=== PATIENT | female | born 1960 | race Caucasian/White ===

== ENCOUNTER → 2016-06-28 | Outpatient (CLI) | payer OTHER ==
[~2016-06-28] MED LIST: ASPIRIN325 MG PO; BLOOD PRESSURE MED PO; BUMEX1 MG PO; CALCIUM 600 +1 EA14 PO; CARBIDOPA/LEVO1 EACH PO; CINNAMON500 MG PO; CO Q-10100 MG PO; DILTIAZEM 24HR120 MG PO; DILTIAZEM 24HR180 MG PO; EFFEXOR XR150 MG PO; EFFEXOR XR75 MG PO; INTRINSI B12-F1 EACH PO; LORAZEPAM0.5 MG PO; LORAZEPAM1 MG PO; LOSARTAN POTAS100 MG PO; MAGNESIUM-VIT1 EACH PO; MAGNESIUM400 M1 PO; METFORMIN HCL500 MG PO; METHOCARBAMOL750 MG PO; METOPROLOL SUCC50 MG PO; MULTIPLE VITAM1 EAC1 PO; NEUPRO1 EAC3 TD; NIACIN 500 MG1 EACH PO; OMEPRAZOLE40 M1 PO; POTASSIUM CHLO10 ME4 PO; SINEMET 25-1001 EACH PO; TRAMADOL HCL50 MG PO; TRIPLE OMEGA C400 MG PO; TURMERIC500 MG PO; VENLAFAXINE225 MG PO; VITAMIN D1000 UNIT PO; VITAMIN D2000 UNIT PO; ZETIA10 MG PO; [UNRECOGNIZED DRUG - OTHER] TP
[2016-06-28 08:20] LABS: HEMATOCRIT 41.4 % (36.0-46.0); MCH 27.9 PG (29.0-34.0); MCHC 31.9 G/DL (30.0-36.0); MCV 87.5 FL (83-99); MEAN PLAT.VOLUME 9.3 uM^3 (9.5-12.4); PLATELET COUNT 229 K/uL (156-360); RBC DIS.WIDTH-SD 44.7 % (39-53); RED BLOOD COUNT 4.73 M/uL (3.80-5.20); WHITE BLOOD COUNT 8.3 K/uL (4.1-10.2)
[2016-06-28 08:46] LABS: INTER. NORMALIZED RATIO 1.1; PROTHROMBIN TIME 10.8 (9.2-11.2); PTT 27.9 (25-32)
== END | disposition home or self-care (01) ==
LOC: OPR 07:38 → EDSTATUS 08:00 → OPR 08:00
PROVIDERS: Internal Medicine
PROC: 0JB63ZX Excision of Chest Subcutaneous Tissue and Fascia, Percutaneous Approach, Diagnostic (ICD-10-PCS; principal; 2016-06-28)
DX: C79.89 Secondary malignant neoplasm of other specified sites (principal); C57.00 Malignant neoplasm of unspecified fallopian tube; Z87.891 Personal history of nicotine dependence; Z96.653 Presence of artificial knee joint, bilateral; Z68.41 Body mass index [BMI] 40.0-44.9, adult; Z79.82 Long term (current) use of aspirin; Z88.5 Allergy status to narcotic agent
CPT/HCPCS: 77012; 85027; 85610; 85730; 88305; 88341 TC; 88342 TC; J3010